=== PATIENT | female | born 2000 | race Two or more races ===

== ENCOUNTER 2022-12-16 09:21 | Emergency (ER) | payer OTHER ==
[2022-12-16 09:33] VITALS: BP 129/73; RESP 18; TEMP 97.8; BMI 18.8
[2022-12-16] MEDS ORDERED: SODIUM CHLORIDE 1,000 ML IV STA (10:05)
[2022-12-16] MEDS ORDERED: ACETAMINOPHEN 1000 MG/100 ML BAG IVPB ONE (10:05)
[2022-12-16] MEDS ORDERED: ACETAMINOPHEN INJECTION 100 ML IVPB ONE (10:13)
[2022-12-16 10:52] LABS: BASO % 0.5 % (0-2.0); EOS % 1.4 % (0-4.5); HEMATOCRIT 38.1 % (32.4-45.2); HEMOGLOBIN 12.8 GM/dL (10.7-15.3); LYMPH % 16.9 % (8-40); MCH 29.1 pg (25.7-33.7); MCHC 33.6 g/dl (32.0-36.0); MEAN CELL VOLUME 86.4 fl (80-96); MEAN PLT VOLUME 8.1 fl (7.5-11.1); MONO % 4.8 % (3.8-10.2); NEUT % 76.4 % (42.8-82.8); PLATELET COUNT 176 10^3/uL (134-434); RBC 4.41 M/mm3 (3.60-5.2); RDW 13.8 % (11.6-15.6)
[2022-12-16 10:56] LABS: HCG,QUALITATIVE URINE Negative
[2022-12-16 11:05] LABS: EPI CELLS 9 /uL (0-25.1); HYALINE CASTS 0 /uL (0-3.1); URINE APPEARANCE CLEAR; URINE BACTERIA 946 /uL (0-1359); URINE BILIRUBIN NEGATIVE (NEGATIVE); URINE COLOR YELLOW; URINE GLUCOSE (UA) NEGATIVE (NEGATIVE); URINE KETONE NEGATIVE (NEGATIVE); URINE LEUK ESTERASE TRACE (NEGATIVE); URINE NITRITE NEGATIVE (NEGATIVE); URINE PROTEIN NEGATIVE (NEGATIVE); URINE RBC 2114 /uL (0-23.9); URINE UROBILINOGEN 0.2 mg/dL (0.2-1.0); URINE WBC 72 /uL (0-25.8)
[2022-12-16 11:42] LABS: INR 1.07 (0.83-1.09); PROTHROMBIN TIME (PATIENT) 12.4 SEC (9.7-13.0)
[2022-12-16 11:45] LABS: ACTIVATED PTT 30.1 SECONDS (25.2-36.5)
[2022-12-16 13:33] VITALS: PULSE 70
== END 2022-12-16 13:34 | disposition home or self-care (01) ==
LOC: JER 09:21
PROC: 3E033NZ Introduction of Analgesics, Hypnotics, Sedatives into Peripheral Vein, Percutaneous Approach (ICD-10-PCS; principal; 2022-12-16)
PROC: 3E0337Z Introduction of Electrolytic and Water Balance Substance into Peripheral Vein, Percutaneous Approach (ICD-10-PCS; 2022-12-16)
DX: N93.9 Abnormal uterine and vaginal bleeding, unspecified (principal); N30.00 Acute cystitis without hematuria
CPT/HCPCS: 36415; 76830-TC; 81003; 84703; 85025; 85610; 85730; 86850; 86900; 86901; 99284-25

== ENCOUNTER 2023-01-27 20:22 | Emergency (ER) | payer OTHER ==
[2023-01-27 20:26] VITALS: BP 128/74; PULSE 71; RESP 17; TEMP 98.1; BMI 19.7
[2023-01-27 21:45] LABS: BASO % 0.6 % (0-2.0); EOS % 0.6 % (0-4.5); HEMATOCRIT 37.6 % (32.4-45.2); HEMOGLOBIN 12.7 GM/dL (10.7-15.3); LYMPH % 23.3 % (8-40); MCH 28.8 pg (25.7-33.7); MCHC 33.7 g/dl (32.0-36.0); MEAN CELL VOLUME 85.5 fl (80-96); MEAN PLT VOLUME 8.3 fl (7.5-11.1); MONO % 6.7 % (3.8-10.2); NEUT % 68.8 % (42.8-82.8); PLATELET COUNT 194 10^3/uL (134-434); RDW 13.5 % (11.6-15.6); WHITE BLOOD COUNT 6.9 K/mm3 (4.0-10.0)
[2023-01-27 22:05] LABS: ALBUMIN 3.9 g/dl (3.4-5.0); BLOOD UREA NITROGEN 13.3 mg/dL (7-18); MAGNESIUM 2.1 mg/dL (1.8-2.4)
[2023-01-27 22:08] LABS: CREATININE 0.7 mg/dL (0.55-1.3); PHOSPHOROUS 3.4 mg/dL (2.5-4.9)
[2023-01-27 22:09] LABS: BILIRUBIN,TOTAL 0.2 mg/dL (0.2-1); TOT PROT 7.1 g/dl (6.4-8.2)
[2023-01-27] MEDS ORDERED: KETOROLAC TROMETHAMINE 15 MG/ML VIAL IVPUSH ONE (22:10)
== END 2023-01-27 23:38 | disposition home or self-care (01) ==
LOC: JER 20:22
PROC: 3E0333Z Introduction of Anti-inflammatory into Peripheral Vein, Percutaneous Approach (ICD-10-PCS; principal; 2023-01-27)
DX: R07.89 Other chest pain (principal); R05.9 Cough, unspecified; Z20.822 Contact with and (suspected) exposure to COVID-19
CPT/HCPCS: 0241U-QW; 36415; 71046-TC-FY; 80053; 83735; 84100; 84484; 84703; 85025; 93005; 93010; 99285-25

== ENCOUNTER 2023-03-29 14:29 | Emergency (ER) | payer OTHER ==
[2023-03-29 14:35] VITALS: BP 99/52; RESP 18; TEMP 98.1; BMI 19.7
[2023-03-29 14:37] VITALS: PULSE 71
[2023-03-29] MEDS ORDERED: ACETAMINOPHEN 500 MG TABLET (FP) PO ONE (15:45)
[2023-03-29] MEDS ORDERED: ACETAMINOPHEN 325 MG TABLET (FP) ONE (16:12)
[2023-03-29 16:30] LABS: HCG,QUALITATIVE URINE Positive
[2023-03-29 16:40] LABS: EPI CELLS >36 /uL (0-25.1); HYALINE CASTS 0 /uL (0-3.1); PH,URINE 7.5 (5.0-8.0); URINE APPEARANCE TURBID; URINE BACTERIA 1079 /uL (0-1359); URINE BILIRUBIN NEGATIVE (NEGATIVE); URINE COLOR YELLOW; URINE GLUCOSE (UA) NEGATIVE (NEGATIVE); URINE KETONE NEGATIVE (NEGATIVE); URINE LEUK ESTERASE 2+ (NEGATIVE); URINE NITRITE NEGATIVE (NEGATIVE); URINE PROTEIN NEGATIVE (NEGATIVE); URINE RBC 7 /uL (0-23.9); URINE UROBILINOGEN 0.2 mg/dL (0.2-1.0); URINE WBC 51 /uL (0-25.8)
== END 2023-03-29 17:39 | disposition home or self-care (01) ==
LOC: JER 14:29
DX: O26.891 Other specified pregnancy related conditions, first trimester (principal); M54.50 Low back pain, unspecified; R10.30 Lower abdominal pain, unspecified; O23.41 Unspecified infection of urinary tract in pregnancy, first trimester; N39.0 Urinary tract infection, site not specified; Z3A.01 Less than 8 weeks gestation of pregnancy
CPT/HCPCS: 81003; 84703; 87086; 87186; 99283-25

== ENCOUNTER 2023-07-19 13:46 | Emergency (ER) | payer OTHER ==
[2023-07-19 14:11] VITALS: BP 107/62; PULSE 83; RESP 17; TEMP 98.8; BMI 28.2
== END 2023-07-19 15:44 | disposition home or self-care (01) ==
LOC: JERFT 13:46 → JER 13:46 → JERFT 15:44
DX: K64.4 Residual hemorrhoidal skin tags (principal)
CPT/HCPCS: 99283-25

== ENCOUNTER 2023-11-10 15:53 | Inpatient (IN) | payer OTHER ==
[2023-11-10] MEDS: ELECTROLYTE-148 SOLN 1,000 ML IV SCH (16:15)
[2023-11-10] MEDS ORDERED: OXYTOCIN 20 UNITS in 0.9% NS 20 UNIT/1,000 ML INFUS.BAG IV ONE (16:30)
[2023-11-10] MEDS: OXYTOCIN 20 UNITS in 0.9% NS 20 UNIT/1,000 ML INFUS.BAG IV SCH (16:57)
[2023-11-10] MEDS ORDERED: BISACODYL 10 MG SUPP.RECT RC PRN (17:23)
[2023-11-10] MEDS ORDERED: WITCH HAZEL 50% (TUCKS) 40 PAD/JAR PAD TP PRN (17:23)
[2023-11-10] MEDS ORDERED: oxyCODONE HCL 5 MG TABLET PO PRN (17:23)
[2023-11-10] MEDS ORDERED: BENZOCAINE 28 GM HEMORRHOIDAL OINTMENT TP PRN (17:23)
[2023-11-10] MEDS ORDERED: BENZOCAINE 20% 57 GM BOTTLE TP PRN (17:23)
[2023-11-10] MEDS ORDERED: ACETAMINOPHEN 325 MG TABLET (FP) PO PRN (17:23)
[2023-11-10] MEDS ORDERED: METHYLERGONOVINE MALEATE 0.2 MG/1 ML AMP IM PRN (17:23)
[2023-11-10 18:01] VITALS: BMI 22.1
[2023-11-10 18:05] LABS: BASO % 0.1 % (0-2.0); EOS % 0.1 % (0-4.5); HEMATOCRIT 35.3 % (32.4-45.2); HEMOGLOBIN 11.5 GM/dL (10.7-15.3); LYMPH % 10.1 % (8-40); MCH 27.4 pg (25.7-33.7); MCHC 32.7 g/dl (32.0-36.0); MEAN PLT VOLUME 9.3 fl (7.5-11.1); MONO % 4.2 % (3.8-10.2); NEUT % 85.5 % (42.8-82.8); PLATELET COUNT 218 10^3/uL (134-434)
[2023-11-10 18:15] LABS: INR 1.01 (0.83-1.09); PROTHROMBIN TIME (PATIENT) 11.7 SEC (9.7-13.0)
[2023-11-10 18:17] LABS: ACTIVATED PTT 26.9 SECONDS (25.2-36.5)
[2023-11-10 18:29] LABS: BLOOD UREA NITROGEN 9.3 mg/dL (7-18); CALCIUM 9.2 mg/dL (8.5-10.1)
[2023-11-10 18:33] LABS: CREATININE 0.7 mg/dL (0.55-1.3)
[2023-11-11 08:30] LABS: BASO % 0.2 % (0-2.0); EOS % 0.4 % (0-4.5); HEMATOCRIT 29.6 % (32.4-45.2); HEMOGLOBIN 9.7 GM/dL (10.7-15.3); LYMPH % 18.8 % (8-40); MCH 27.6 pg (25.7-33.7); MCHC 32.9 g/dl (32.0-36.0); MEAN PLT VOLUME 9.1 fl (7.5-11.1); MONO % 5.7 % (3.8-10.2); NEUT % 74.9 % (42.8-82.8); PLATELET COUNT 186 10^3/uL (134-434); RBC 3.52 M/mm3 (3.60-5.2); RDW 14.7 % (11.6-15.6); WHITE BLOOD COUNT 10.9 K/mm3 (4.0-10.0)
[2023-11-11] MEDS: IBUPROFEN 600 MG TABLET (FP) PO PRN (09:14)
[2023-11-11 12:10] VITALS: RESP 18
[2023-11-11 21:57] VITALS: TEMP 98.2
[2023-11-11] MEDS ORDERED: SENNOSIDES/DOCUSATE COMBO (SENNA PLUS) TABLET (UD) PO PRN (22:00)
[2023-11-12 10:16] VITALS: BP 117/82; PULSE 59
== END 2023-11-12 14:25 | disposition home or self-care (01) | DRG 560 ==
LOC: JLDR 15:53 → J3W 20:02
PROVIDERS: ADMIT Specialist; ATTEND Specialist
PROC: 10E0XZZ Delivery of Products of Conception, External Approach (ICD-10-PCS; principal; 2023-11-10)
DX: O48.0 Post-term pregnancy (principal); Z3A.40 40 weeks gestation of pregnancy; Z37.0 Single live birth
CPT/HCPCS: 36415; 80048; 80053; 85025; 85027; 85610; 85730; 86780; 86850; 86900; 86901; 87389